=== PATIENT | male | born 1960 | race Caucasian/White ===

== ENCOUNTER 2016-09-27 07:00 | Inpatient (IN) | payer OTHER ==
[~2016-09-27] VITALS: Ht 170.2 cm; Wt 83.9 kg
[2016-09-28] VITALS (8 sets, daily range): BP systolic 140–160; BP diastolic 80–100
--- NOTE | 2016-09-28 08:06 | RADIOLOGY REPORT ---
EXAMINATION: XR CHEST CLINICAL INFORMATION: Preop TLIF COMPARISON: None TECHNIQUE: 2 views of the chest were obtained. FINDINGS: No focal consolidation, pulmonary edema, or pleural effusion. Normal cardiomediastinal silhouette. IMPRESSION: No acute cardiopulmonary findings.
--- NOTE | 2016-09-28 12:05 | RADIOLOGY REPORT ---
EXAMINATION: XR LUMBAR SPINE CLINICAL INFORMATION: L4-L5 and L5-S1 transforaminal lumbar interbody fusion. COMPARISON: Lumbar spine CT scan dated 09/24/2016. TECHNIQUE: Lateral views of the lumbar spine were performed and are labeled #1 and #2. FINDINGS: Film 1: A thin metallic marker is seen projected posteriorly over the posterior spinous process of the S1 vertebral body. Film 2: Metallic instruments is seen posteriorly at the spinous process of L5 with a forceps projecting at the L5-S1 facet joint. There is moderate degenerative disc disease and facet arthropathy at L4-L5 and L5-S1. IMPRESSION: Localization films from TLIF.
--- NOTE | 2016-09-28 13:41 | Operative Report ---
Operative/Inv Procedure Report Surgery Date: 09/28/16 Name of Procedure: L4 5 bilateral laminectomies complete foraminotomies. L5-S1 bilateral laminectomies complete foraminotomies. L4 5 bilateral osteotomies. L5-S1 bilateral osteotomies. L4 5 and L5-S1 TLIF. Insertion of L4 5 9 x 28 mm trtanium cage, insertion of L5-S1 9 x 28 mm tritanium cage. L4 5 S1 posterior lateral arthrodesis utilizing autologous bone graft and iliac crest graft aspirate. L4 5 S1 posterior lateral segmental instrumentation utilizing amna titanium instrumentation stereotactically. Pre-Operative Diagnosis: L4 5 L5-S1 degenerative disc disease disc herniation facet arthropathy Post-Operative Diagnosis: Same Estimated Blood Loss: 450cc Surgeon/Journal Entry Audit Clerk: DAYANA GUDINO MD, RACHEL DUMONT,KYRIE Barragan Anesthesia: general endotracheal tube Operative/Procedure Note Note: After undergoing endotracheal intubation Campuzano catheterization Venodyne's were placed over both lower extremities. The patient was placed prone, back flat on a Stanford frame all bony prominences well-padded. The back was washed with alcohol and Betadine x-ray was used for localization. . It was reprepped again with a ChloraPrep solution draped in usual sterile fashion. An incision was made between the L4 and the S1 vertebra and developed down to the on the underlying paraspinal muscles were mobilized out laterally to the level of the transverse processes. At this point x-ray was used for confirmation. Working with a FireBlade's bone scalpel the L4-L5 and superior S1 lamina were now removed the bone was saved and morcellized and later used in the arthrodesis. Both pars were removed out laterally as were the facet joints completing bilateral osteotomies at L4 5 and L5-S1. A complete release of the nerve roots the disc space was entered with an 11 blade at L4 5 and L5-S1. Discs were now removed with a combination of straight and curved rongeurs and straight and curved curettes. The cartilaginous endplates were removed and the bony endplates were partially decorticated. The bone that was harvested morcellized and combined with iliac crest graft aspirate was obtained through a separate stab incision. At this point bone graft was placed into the disc spaces at L4 5 and L5-S1. At L4 5 Cage tRItanium by [place] was centrally filled with autologous bone graft and tapped across the midline into the interspace. Similarly at L5-S1 a similar 9 x 28 mm cage was centrally filled with autologous bone graft and tapped across the midline in the interspace. Copious amounts of bacitracin irrigation were utilized. The transverse processes of L4-L5 and the ala of S1 were decorticated and morselized bone graft was packed over the decorticated surfaces posterolaterally. After obtaining the stereotactic coordinates the pedicle screws were now placed under stereotactic guidance at L4-L5 and S1. Titanium screws 6.5 mm diameter 50mm in length at L4 45 mm in length at L5 and millimeters in length at S1. The screws were stimulated and found to stimulate above 25 mA. At this point a 2 rods were connected to the polyaxial screws and secured under compression the spinal muscles were now reapproximated utilizing interrupted 0 Vicryls a drain was placed deep into the wound and secured to the skin. Vancomycin powder was added to the wound as well. The separate teeniest tissues were then closed using inverted 2-0 Vicryl's and then subcuticular 4-0 Vicryl closure for the skin with Steri-Strips the patient was taken extubated to the recovery room having tolerated procedure well
--- NOTE | 2016-09-28 14:44 | RADIOLOGY REPORT ---
EXAMINATION: XR LUMBOSACRAL SPINE CLINICAL INFORMATION: L4-L5 and L5-S1 transforaminal lumbar interbody fusion. COMPARISON: Lumbar spine films from earlier today. TECHNIQUE: Fluoroscopic equipment was dedicated to the operating room for the performance of a lumbar spine fusion. Frontal and lateral views of the lumbosacral junction and 2 forearm specimens were performed and are archived in PACS. FINDINGS: There is placement of intervertebral disc spacers at the L4-L5 and L5-S1 levels with anatomic alignment demonstrated. Please refer to operative notes for details. IMPRESSION: L4-L5 and L5-S1 transforaminal lumbar interbody fusion.
--- NOTE | 2016-09-28 14:51 | Operative Report ---
Operative/Inv Procedure Report Surgery Date: 09/28/16 Name of Procedure: 1. Bilat L4, L5 pars osteotomies 2. L4/5, L5/S1 far lateral discectomies 3. L4/5, L5/S1 TLIF with reina tritanium cages, autograft, ICBM aspirate 4. L4-S1 segmental posterolateral arthrodesis with reina xia3 pedicle screws/ rods, autograft, ICBM aspirate 5. Right posterior iliac crest bone marrow aspirate 6. O-arm navigation Pre-Operative Diagnosis: advanced L4/5, L5/S1 degenerative disc disease, stenosis, spondylolisthesis Post-Operative Diagnosis: same Estimated Blood Loss: 200cc Surgeon/Resident Surgeon: RACHEL DUMONT,Fer Anderson MD Anesthesia: general endotracheal tube Monitors: neurophysiologic monitoring IV Fluids: 2 L crystalloid, 100cc cell saver Implants: reina Urine Output: 1L via campuzano Drains: med BEATRIZ Specimens: synovial cyst, disc material Complications: none Condition: stable Operative Indication: Pt 56 yo male s/p work injury with intractable LBP and RLE pain and parasthesias with high grade foraminal stenosis at L4/5, L5/S1 secondary to advanced DDD, facet hypertrophy and uncovertebral spondylosis. In light of failure to respond to nonoperative treatment, he now presents for operative intervention. Operative/Procedure Note Note: Patient was taken to the operating room. After appropriate patient identification, neurophysiologic monitoring leads were placed and baseline recordings obtained. Patient underwent the smooth induction of general endotracheal anesthesia without incident. With tube secured, Campuzano catheter was sterilely inserted. DVT prophylaxis utilized throughout the case. Patient given 2 g IV Preoperative Prophylaxis. Patient then carefully turned to the prone position on the Stanford table taking care to ensure all pressure points well-padded. Lumbar region low back was widely prepped and draped usual sterile fashion using povidone solution. A vertical midline skin incision was marked and infiltrated with local anesthetic. Localizing x-ray was obtained officially in place and confirmed the level of S1. Skin incision made with a 10 blade knife. Dissection carried down with the Bovie to the lumbodorsal fascia. Fascia incised in the midline and a subperiosteal dissection lumbar paraspinal muscles performed bilaterally exposing spinous processes lamina and facet joints from L4 to the sacrum. Domingo placed on the presumed L5 lamina and intraoperative lateral x-ray obtained and confirmed this to be at the level. With correct levels verified, we then proceeded to expose the transverse processes of L4, L5, sacral alar bilaterally which were decorticated with a high-speed drill. Care was taken to maintain the facet capsule of L3 4. First, through a small stab incision over the right posterior iliac crest, 15 mL of iliac crest bone marrow aspirate was obtained through a Jamshidi needle and to add to the decompression autograft. Bilateral pars osteotomies of L4 and L5 were performed with the bone scalpel. Complete facetectomies were completed using the bone scalpel and Kerrison rongeurs skeletonizing the pedicles of L4, L5, and S1 bilaterally. Marked hypertrophy of the facet joints was noted to particularly on the patient's more symptomatically right side and especially at L5-S1. The exiting and traversing roots of L4-L5 and S1 were widely decompressed and complete foraminotomies were performed bilaterally with particular attention to the patient's most symptomatically right side. All bone was saved, morcellated, and passed off to the back table and added to the iliac crest bone marrow aspirate. With the decompression completed, we then focused our attention to the interbody arthrodesis. Working at L4 5 from the patient's right side, the dural sac was gently mobilized to the midline. A cuff of venous epidural tissue was coagulated and divided. An annulotomy was performed with an 11 blade knife. Discectomy was completed with small straight and angled curettes and pituitary rongeurs, disc space nicole and rasps until all the cartilaginous endplate was removed. After appropriate trials, a 9 by 28 x 6 lordotic tritanium cage was selected. Morcellated autograft was packed into the anterior disc space. The cage was filled with autograft and gently impacted into the L4 5 disc space under direct observation and countersunk. With the L4 5 cage in position, we then focused our attention to L5-S1. In an analogous fashion and working from the right, the dura was protected and discectomy was performed at L5-S1 with the disc space nicole and rasps until all the cartilaginous endplate was removed. After appropriate trials, a second 9 x 28 x 60 lordotic Reina tritanium cage was selected, filled with morcellated autograft. Autograft was also packed into the anterior disc space. The cage was then impacted into L5-S1 and countersunk by approximately 2 mm and its position confirmed visually noted to be excellent. With the cages in position, we then proceeded with a posterior lateral arthrodesis and placement of the pedicle screw and rods. The morcellated autograft from the decompression was packed over the transverse processes from L4 to the sacral alar bilaterally. The O arm reference arc was placed in the right post iliac cresat and the o-arm was brought into play. Reference AP and lateral x-rays were obtained followed by a spin. Reformats were completed and confirmed. Using the O arm guidance, the entry points for pedicle screws at L4, L5, and S1 were selected at the junction of the pars transverse process and facet. Greenhouse Assistant holes were drilled. The pedicles were traversed with a gearshift. The holes were sounded with a ball-tipped probe, tapped, resounded and screws placed. At L4, 6.5 x 50 mm screws were placed bilaterally, at L5, 6.5 x 40 mm screws bilaterally and at S1, 6.5 x 35 mm screws placed bilaterally. once all screws were in position, they were stimulated with thresholds greater than 30 mA at all 6 locations. The O arm was then brought back into play and a second spin obtained and confirmed excellent position of all the instrumentation with the exception of the right L4 screw which was noted to be slightly lateral. The screw was removed and redirected more medial with excellent purchase. The medial and inferior aspect of the pedicle was palpated with a elfego elevator and no cortical breakthrough was noted. 60 mm rods were top loaded into the screws and locking caps placed. The screws were finally tightened with an antitorque device. The wound was copiously irrigated with the sterile saline. 1 g of IV vancomycin powder was used to coat all of the cut issue surfaces. 10 mL of long-acting local anesthetic was infiltrated into the paraspinal muscle and wound closure was begun. Medium BEATRIZ drain placed into the wound and secured to the skin with a 2-0 nylon suture. The deep muscle was reapproximated interrupted 0 Vicryl suture. The fascia was closed with interrupted 0 Vicryl suture. Subcutaneous tissue was irrigated and closed in layers with interrupted 2-0 Vicryl suture and the skin was closed with serge. The wounds clean and dried. Bacitracin and sterile occlusive dressing was placed. A small stab incision at the right hip was closed with interrupted 2-0 Vicryl in subcutaneous tissue and serge in the skin and a clean dry dressing placed. Patient was returned to the supine position, awakened extubated and taken to PACU in stable condition. She was noted to be moving all 4 extremities at the completion of the case. All sponge, needle, and instrument counts were correct at the completion of the procedure 3. Neurophysiologic monitoring was improved at the end of the case compared to preop baseline. Discharge Disposition: PACU
--- NOTE | 2016-09-28 17:58 | Admission Core Measures ---
Admission Lab Results I reviewed the following labs: Laboratory Tests 09/28 0835 Toxicology Urine Opiates Screen (>2000 NG/ML) < 100.00 Methadone Screen (>300 NG/ML) < 40 Barbiturate Screen (>200 NG/ML) < 60 Ur Phencyclidine Scrn (>25 NG/ML) < 6.00 Amphetamines Screen (>1000 NG/ML) 148 U Benzodiazepines Scrn (>200 NG/ML) < 85 Urine Cocaine Screen (>300 NG/ML) 102 Urine Cannabis Screen (>50 NG/ML) < 5.00 Admission Meds I reviewed the following Meds: Current Medications Sig/Debra Start time Last Medication Dose Stop Time Status Admin Acetaminophen 650 MG Q4P PRN 09/28 1645 AC (Tylenol) Bisacodyl 10 MG DAILY NEEDED PRN 09/28 1700 AC (Dulcolax Supp) Cefazolin Sodium 2,000 MG ONCE 09/28 0000 NR (Kefzol-Ancef Inj) 09/28 2359 Diazepam 5 MG Q6P PRN 09/28 1700 AC (Valium) Docusate Sodium 100 MG TID 09/28 2200 AC (Colace) Heparin Sodium 5,000 UNIT Q8 09/28 2200 AC (Porcine) Hydromorphone HCl 1 MG Q4P PRN 09/28 1645 AC (Dilaudid) Hydromorphone HCl 50 MG Q24H PRN 09/28 1615 AC (Dilaudid) Sodium Chloride 45 ML (Normal Saline 50ML Bag) Ketorolac 15 MG Q6P PRN 09/28 1645 AC Tromethamine (Toradol) Ondansetron HCl 4 MG Q8P PRN 09/28 1700 AC (Zofran) Oxycodone/ 1 TAB Q4P PRN 09/28 1645 AC Acetaminophen (Percocet) Oxycodone/ 2 TAB Q4P PRN 09/28 1645 AC Acetaminophen (Percocet) Ramelteon 8 MG AT BEDTIME 09/28 2200 AC (Rozerem) Senna 374 MG AT BEDTIME NEED.. 09/28 1645 AC (Senokot) Sodium Chloride 1,000 ML .Q10H 09/28 1645 AC (Normal Saline 0.9%) 09/29 1244 Trimethobenzamide HCl 200 MG Q6P PRN 09/28 1700 AC (Tigan) Zolpidem Tartrate 2.5 MG AT BEDTIME 09/28 2200 AC (Ambien) Acute Coronary Syndrome Inclusion Criteria ACS Diagnosis No Inpatient Core Measures LDL Reminder: If No, please order W/I first 24hr of stay Congestive Heart Failure Inclusion Criteria CHF Diagnosis No Cerebrovascular accident Inclusion Criteria CVA/TIA Diagnosis No Inpatient Core Measures Bedside Swallow Eval Reminder: If BSE failed, place ST order Antithrombotic Reminder: Order Antithrombotic Medication by end of day 2 Antithrombotic Reminder: Document Reason Antithrombotic Not ordered by end of day 2 AFIB/Flutter Reminder: If Present, add to problem list AFIB/Flutter Reminder: Order Anticoag Medication for pts with AFIB/Flutter Atherosclerosis Reminder: If Present, add to problem list LDL Reminder: If No, please order W/I first 24hr of stay PT Order Reminder: If No, please order Venous thromboembolism Inpatient Core Measures VTE Risk Factors: Age > 40, Smoking, Surgery [facility] prophylaxis d/t No contraindications No VTE Pharm Prophylaxis d/t No contraindications Inclusion Criteria - Per Current guidelines, there needs to be overlap - treatment for the first 5 days of Warfarin therapy. - Parenteral Anticoagulation (IV or SC) needs to be - given along with Warfarin therapy. VTE Diagnosis No VTE Type NONE VTE Confirmed by (Test) NONE Problem List As ranked by this Provider includes Assessment & Plan 1. Hypertension HOME MEDS Home Med List Amlodipine Besylate 5 MG TABLET 5 MG PO DAILY HIGH BLOOD PRESSURE Diazepam (Valium) 10 MG TABLET 5 MG PO Q6P PRN SPASMS Docusate Sodium 100 MG CAPSULE 100 MG PO TID PRN CONSTIPATION Gabapentin 300 MG CAPSULE 300 MG PO BID NEUROPATHIC SYMPTOMS Hydromorphone HCl (Dilaudid) 2 MG TABLET 1-2 TAB PO Q4-6 PRN PRN PAIN CONTROL
--- NOTE | 2016-09-28 18:02 | PN- Neurosurgical ---
Subjective Subjective: POST-OP NOTE: Reports pain controlled. Labetolol given in pacu but blood pressure still elevated, sbp 160/96 now. He admits he use to be on 2 blood pressure medications , from the [facility], but has not taken them in several years. He is asking for a nicotine patch (admits to smoking 5 cigarettes / day). Flood catheter removed in pacu due to reported discomfort. He reports he has voided since it's removal, but pacu cannot confirm this. He denies dizziness. No shortness of breath. No chest pains. Objective Vital Signs and I&Os hypertensive in pacu up to 175/115 (given labetolol 10 mg iv x 3 doses by anesthesia), last checked on floor at 160/96 BEATRIZ drain (100 mls emptied in pacu) flood (400 mls emptied in pacu) Physical Exam: General - alert. comfortable. no acute distress. Lungs - clear bilaterally. no w/r/r. Cardiac - s1s2. reg. Abdomen - soft. nontender Lumbar dressing stained, but intact. BEATRIZ with scant serosang draingage. Extremities - warm bilaterally. no c/c/e. calves soft and nontender b/l. nvi. Assessment/Plan Assessment/Plan This 56 year old male s/p work injury with intractable LBP and RLE pain and parasthesias with high grade foraminal stenosis at L4/5, L5/S1 secondary to advanced DDD, facet hypertrophy and uncovertebral spondylosis, is now POD#0 s/p TLIF L4/5, L5/S1, and uncontrolled hypertension hospitalist and MOD called for co-management of blood pressure they asked for a set of labs, including cbc and bep plus bun/cr pain control as ordered LSO brace brought in from [facility] pipe hep sc - dvt ppx ancef q8 until BEATRIZ drain removed monitor BEATRIZ drain ?hx of cocaine abuse (utox positive) no nicotine patch per will d/w Core Measures/Miscellaneous Venous Thromboembolism VTE Risk Factors: Age > 40, Smoking, Surgery VTE Contraindications: No Contraindications VTE Diagnosis: No VTE Type: NONE VTE Confirmed by (Test): NONE Beta Marissa Is Beta Marissa a Home Med? No Antibiotics Is Patient on Antibiotics? Yes If Yes: prophylaxis
--- NOTE | 2016-09-28 18:08 | Cons- Medical ---
REEMA DUMONT,KOSTA 09/28/16 5603: General Information and HPI Consulting Request Date of Consult: 09/28/16 Requested By: RACHEL DUMONT,KYRIE Barragan History of Present Illness: Sage is 50-year-old man with a medical history significant for hypertension smoking, polysubstance use disorder including cocaine, marijuana, amphetamines. He denies any IV drug usage ever in his life. He likes to smoke is cocaine/ freebasing. He lasted a "bump" on Tuesday. He reports that he has had a long history of hypertension, previously treated at the . He was on 2 unknown antihypertensive medications but self discontinued remotely. Limited medical follow-up since. At present he denies any visual changes or headache, chest pain or discomfort at this time, dyspnea. He does have back discomfort- which is expected given his recent surgery. He feels his pain his pain is well controlled, he is having bouts of some breakthrough pain. Allergies/Medications Allergies: Coded Allergies: No Known Allergies (09/23/16) Home Med List: Amlodipine Besylate 5 MG TABLET 5 MG PO DAILY HIGH BLOOD PRESSURE PLEASE CALL TO SCHEDULE APPOINTMENT WITH PCP FOR FOLLOW UP HIGH BLOOD PRESSURE AND DOSE ADJUSTMENT Diazepam (Valium) 10 MG TABLET 5 MG PO Q6P PRN SPASMS STAGGER WITH PAIN MEDICATION Docusate Sodium 100 MG CAPSULE 100 MG PO TID PRN CONSTIPATION STOOL SOFTENER AVAILABLE OVER THE COUNTER Gabapentin 300 MG CAPSULE 300 MG PO BID NEUROPATHIC SYMPTOMS CONTINUE DIRECTED BY Hydromorphone HCl (Dilaudid) 2 MG TABLET 1-2 TAB PO Q4-6 PRN PRN PAIN CONTROL TAKE DIRECTED FOR PAIN CONTROL. STAGGER WITH VALIUM. Current Medications: Current Medications Sig/Debra Start time Last Medication Dose Route Stop Time Status Admin Acetaminophen 650 MG Q4P PRN 09/28 1645 AC PO Acetaminophen 1,000 MG .STK-MED ONE 09/28 0746 DC IV 09/28 0747 Bisacodyl 10 MG DAILY NEEDED PRN 09/28 1700 AC DE Cefazolin Sodium 2,000 MG IQ8 09/28 2200 AC Sodium Chloride 100 ML IV 09/29 2159 Cefazolin Sodium 2,000 MG ONCE 09/28 0000 NR IV 09/28 2359 Dexamethasone 8 MG .STK-MED ONE 09/28 0747 DC IM 09/28 0748 Diazepam 5 MG Q6P PRN 09/28 1700 AC PO Docusate Sodium 100 MG TID 09/28 2200 AC PO Fentanyl Citrate 200 MCG .STK-MED ONE 09/28 0746 DC IM 09/28 0747 Heparin Sodium 5,000 UNIT Q8 09/28 2200 AC (Porcine) SC Hydromorphone HCl 1 MG Q4P PRN 09/28 1645 AC IV Hydromorphone HCl 50 MG Q24H PRN 09/28 1615 AC Sodium Chloride 45 ML IV Hydromorphone HCl 2 MG .STK-MED ONE 09/28 0745 DC IM 09/28 0746 Ketorolac 15 MG Q6P PRN 09/28 1645 AC Tromethamine IV Midazolam HCl 2 MG .STK-MED ONE 09/28 0746 DC IM 09/28 0747 Ondansetron HCl 4 MG Q8P PRN 09/28 1700 AC IV Ondansetron HCl 8 MG .STK-MED ONE 09/28 0746 DC IM 09/28 0747 Oxycodone/ 1 TAB Q4P PRN 09/28 1645 AC Acetaminophen PO Oxycodone/ 2 TAB Q4P PRN 09/28 1645 AC Acetaminophen PO Ramelteon 8 MG AT BEDTIME 09/28 2200 AC PO Remifentanil 5 MG .STK-MED ONE 09/28 0747 DC IV 09/28 0748 Senna 374 MG AT BEDTIME NEED.. 09/28 1645 AC PO Sodium Chloride 1,000 ML .Q10H 09/28 1645 AC 09/28 IV 09/29 1244 1805 Trimethobenzamide HCl 200 MG Q6P PRN 09/28 1700 AC IM Zolpidem Tartrate 2.5 MG AT BEDTIME 09/28 2200 AC PO Review of Systems Review of Systems All Other Systems: Reviewed and Negative Past History Travel History Traveled to [place] past 21 day No Surgical History Surgical History: none Psychosocial History Smoking Status: Current Everyday Smoker Exam & Diagnostic Data Last 24 Hrs of Vital Signs/I&O Vital Signs Date Time Temp Pulse Resp B/P Pulse O2 O2 Flow FiO2 Ox Delivery Rate 09/28 1721 98.1 78 20 160/96 95 Room Air Room Air Physical Exam General Appearance: well developed/nourished, no apparent distress, alert, awake , comfortable Head: atraumatic, normal appearance Eyes: Bilateral: PERRL, EOMI. Neck: normal inspection Respiratory: normal breath sounds Cardiovascular: regular rate/rhythm Peripheral Pulses: 2+ radial (R), 2+ radial (L) Gastrointestinal: normal bowel sounds, soft, non-tender Extremities: no edema Neurologic/Psych: no motor/sensory deficits, awake, alert, oriented x 3 Cranial Nerves: normal speech Skin: intact, normal color, warm/dry Last 24 Hrs of Labs/Prudencio: Laboratory Tests 09/28/16 0835: Urine Opiates Screen < 100.00, Methadone Screen < 40, Barbiturate Screen < 60, Ur Phencyclidine Scrn < 6.00, Amphetamines Screen 148, U Benzodiazepines Scrn < 85, Urine Cocaine Screen 102, Urine Cannabis Screen < 5.00 Assessment/Plan Assessment/Plan 50-year-old man with a medical history significant for hypertension smoking, polysubstance use disorder including cocaine, marijuana, amphetamines. His blood pressure at this time is 160 systolic over 90 diastolic. POD#0 s/p discectomy. Given he is postop, and in some discomfort this is not unusual. He has no symptoms suggestive of hypertensive emergency. Upon review of the medical record, he does not seem to have any recent labs done today. Suspect untreated benign essential hypertension as a cause of this patient's elevated blood pressure. He did receive 2 doses of 10 mg of labetalol intravenously. Recommendations: Please obtain baseline blood work-CBC BMP today Please recheck blood pressure in 2 hours Consider starting PAMELA inhibitor if his creatinine is okay, or a calcium channel bret such as amlodipine. Incentive spirometry DVT prophylaxis at all times-defer to surgery PT evaluation as required and when able to participate Consult Acknowledgment - Thank you for your consult request. FREEDOM FRIED 09/28/16 2100: Assessment/Plan Consult Acknowledgment - Thank you for your consult request. Attending MD Review Statement Attending Statement Attending MD Statement: examined this patient, discuss w/resident/PA/ORTHOTIST OR PROSTHETIST, agreed w/resident/PA/ORTHOTIST OR PROSTHETIST, reviewed EMR data (avail), reviewed images, amended to note Attending Assessment/Plan: CC: High BP PMH: ?HTN, smoker, Polysubstance abuse, non- compliance Patient s/p TLIF L4/5, L5/S1, was persistently hypertensive. Patient states that he was on 2 different medications one for cholesterol 1 for hypertension, stopped taking medications approximately one to one and half years back, has not been following up with PCP. He also admits polysubstance abuse with cocaine, marijuana and amphetamines, never IV use. had a states that he had been in rehabilitation program and was following get with group meetings, but then somewhat in 1 years lost track and started using substances again, he gets dyspnea on exertion after 6 flights of stairs. Denies any chest pain or even on exertion. Currently he denies any chest pain, dizziness, presyncope, palpitations, diaphoresis or vision changes. Patient underwent surgery today and received 3 doses of IV labetalol during the procedure, currently pain is controlled with narcotics. Vitals: Tmax 98.2, HR, RR, oxygen saturation acceptable range. Blood pressure 160/96. On examination: A O 3, cooperative, no acute distress, neck supple, no JVD, no lymphadenopathy, mucosa moist, no focal neurological deficit, pupils equal round reactive bilaterally, peripheral pulses perfusion normal, no dependent edema, no obvious skin rashes or inflammation, BEATRIZ drain drain CVS: S1-S2. RS: Clear to auscultate bilaterally. Abdomen: Soft, NT, ND, bowel sounds present. BMP reviewed, creatinine normal, U tox is positive for amphetamine and cocaine. A and P Patient's blood pressure is significantly elevated, asymptomatic, noncompliant. According to him patient's blood pressure was high even before getting admitted, had some "EKG changes" in cardiology office for hypertension. Patient may be experiencing some pain and stress postop along with polysubstance abuse especially with cocaine maybe adding up to blood pressure. Patient received 3 doses of labetalol today. - Avoid beta bret (history of cocaine use, U tox positive) - Check EKG (for LVH and ST changes wih high BP and recent cocaine use) - Consider discontinuing IV fluids, or changing rate from 100 mLNS per hour to KVO - If blood pressure is still elevated after decreasing IV fluids, small dose of calcium channel bret like amlodipine 5 mg Or lisinopril 5 mg once a dose today and reevaluate in a.m. -Consult patient regarding cocaine use, side effects of hypertension, and cardiomyopathy, suggested and regular PCP follow-up. - DVT prophylaxis according to surgical team Appreciate consult, will follow along.
[2016-09-28 20:19] LABS: ABSOLUTE BASOPHIL COUNT 0 /CUMM (0.0-0.2); ABSOLUTE EOSINOPHIL COUNT 0 /CUMM (0.0-0.7); ABSOLUTE GRANULOCYTE CT 21.3 /CUMM (1.4-6.5); ABSOLUTE LYMPH COUNT 0.7 /CUMM (1.2-3.4); ABSOLUTE MONOCYTE COUNT 0.7 /CUMM (0.10-0.60); BASOPHIL % 0 % (0.0-2.0); EOSINOPHIL % 0 % (0-5); MEAN CORPUSCULAR HGB CONC 32.6 G/DL (33.0-37.0); MEAN CORPUSCULAR VOLUME 88.9 FL (80.0-94.0); MEAN PLATELET VOLUME 9.7 FL (7.4-10.4); PLATELET COUNT 226 /CUMM (130-400); RBC DISTRIBUTION WIDTH 14.6 % (11.5-14.5); RED BLOOD CELL CT 4.72 /CUMM (4.70-6.10); WHITE BLOOD CELL COUNT 22.7 /CUMM (4.8-10.8)
[2016-09-28 20:36] LABS: GRANULOCYTE % 93.9 % (42.2-75.2)
[2016-09-29] VITALS (10 sets, daily range): BP systolic 124–154; BP diastolic 70–94
--- NOTE | 2016-09-29 08:14 | PN- Neurosurgical ---
Subjective Subjective: Patient reporting occasional back spasms overnight, points to incision as primary source of discomfort and location of spasm. Denies radicular symptoms to bilateral lower extremities. Denies chest pain, shortness of breath and difficulty breathing. Denies nausea and vomitting. Has been voiding without difficulty. Objective Vital Signs and I&Os Vital Signs Date Time Temp Pulse Resp B/P B/P Pulse O2 O2 Flow FiO2 Mean Ox Delivery Rate 09/29 0725 98.3 81 20 140/94 94 Room Air 09/29 0530 98.0 88 20 124/80 94 Room Air 09/29 0330 98.0 90 20 144/90 09/29 0329 97.9 84 20 144/90 94 Room Air 09/29 0130 98.2 90 20 154/90 09/29 0130 98.0 90 20 154/90 93 Room Air 09/28 2341 98.4 89 20 160/100 94 Room Air 09/28 2330 98.4 98 20 160/100 09/28 2200 98.1 86 20 140/82 96 09/28 2130 98.0 90 20 140/80 09/28 2024 Room Air Room Air 09/28 1952 98.2 72 20 160/90 94 09/28 1930 98.2 72 20 160/90 09/28 1730 98.1 78 20 160/96 09/28 1721 98.1 78 20 160/96 95 Room Air Room Air Intake & Output 09/29 1600 09/29 0800 09/29 0000 09/28 1600 09/28 0800 09/28 0000 Intake Total 1000 300 Output Total 2020 200 Balance -1020 100 Intake, IV 700 100 Intake, Oral 300 200 Output, 120 200 Drainage Output, Urine 1900 Patient 185 lb Weight Physical Exam: General: Alert and oriented x3, no acute distress Caridac: S1S2 Pulm: CTA Bilaterally, using incentive spirometry Abdomen: Non-distended, non-tender Extremities: Moves all extremities, distal sensations grossly intact. Motor 5/ 5 in plantar and dorsi flexion bilaterally as well as in bilateral straight leg raises. Skin warm and well perfused. DP pulses palpable bilaterally. Bilateral calves soft and non-tender. Surgical site: Lumbar spine. Dressing intact, some spotting. BEATRIZ holding suction, 120 cc of sanguinous drainage reported overnight and 120 cc of sanguinous drainage reported on evening shift as well. Assessment/Plan Assessment/Plan This is a 56 year old male, POD 1, s/p TLIF with PMH significant for htn as well as polysubstance abuse. 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 Will continue to assess bp. -Continue heart healthy diet, advance as tolerated -OOB with lumbar support -DVT ppx: Sub q heparin -ABX ppx: Continue abx while drain in place Will d/w Dr. Barajas Core Measures/Miscellaneous Venous Thromboembolism VTE Risk Factors: Age > 40, Smoking, Surgery VTE Contraindications: No Contraindications VTE Diagnosis: No VTE Type: NONE VTE Confirmed by (Test): NONE Beta Marissa Is Beta Marissa a Home Med? No Antibiotics Is Patient on Antibiotics? Yes If Yes: prophylaxis
--- NOTE | 2016-09-29 08:53 | PN- Neurosurgical ---
Subjective Subjective: complains of incisionsl LBP with spasm Objective Vital Signs and I&Os Vital Signs Date Time Temp Pulse Resp B/P B/P Pulse O2 O2 Flow FiO2 Mean Ox Delivery Rate 09/29 0725 98.3 81 20 140/94 94 Room Air 09/29 0530 98.0 88 20 124/80 94 Room Air 09/29 0330 98.0 90 20 144/90 09/29 0329 97.9 84 20 144/90 94 Room Air 09/29 0130 98.2 90 20 154/90 09/29 0130 98.0 90 20 154/90 93 Room Air 09/28 2341 98.4 89 20 160/100 94 Room Air 09/28 2330 98.4 98 20 160/100 09/28 2200 98.1 86 20 140/82 96 09/28 2130 98.0 90 20 140/80 09/28 2024 Room Air Room Air 09/28 1952 98.2 72 20 160/90 94 09/28 1930 98.2 72 20 160/90 09/28 1730 98.1 78 20 160/96 09/28 1721 98.1 78 20 160/96 95 Room Air Room Air Intake & Output 09/29 1600 09/29 0800 09/29 0000 09/28 1600 09/28 0800 09/28 0000 Intake Total 1000 300 Output Total 2019 200 Balance -1020 100 Intake, IV 700 100 Intake, Oral 300 200 Output, 120 200 Drainage Output, Urine 1900 Patient 83.915 kg Weight Physical Exam: Pt awake and alert conversive and appropriate incision is c,d,i BEATRIZ with serosanguinous dc 120cc last shift neuro exam is normal ambulating with brace, using IS tyler some po this am voiding on own Current Medications: Current Medications Sig/Debra Start time Last Medication Dose Route Stop Time Status Admin Acetaminophen 650 MG Q4P PRN 09/28 1645 AC PO Bisacodyl 10 MG DAILY NEEDED PRN 09/28 1700 AC DC Cefazolin Sodium 2,000 MG IQ8 09/28 2200 AC 09/29 Sodium Chloride 100 ML IV 09/30 2157 0836 Cefazolin Sodium 2,000 MG ONCE 09/28 0000 DC IV 09/28 2359 Diazepam 5 MG Q6P PRN 09/28 1700 AC PO Docusate Sodium 100 MG TID 09/28 2200 AC 09/29 PO 0836 Fentanyl Citrate 100 MCG .STK-MED ONE 09/28 1319 DC IM 09/28 1320 Heparin Sodium 5,000 UNIT Q8 09/28 2200 AC (Porcine) SC Hydromorphone HCl 1 MG Q4P PRN 09/28 1645 AC 09/28 IV 2208 Hydromorphone HCl 50 MG Q24H PRN 09/28 1615 AC Sodium Chloride 45 ML IV Ketorolac 15 MG Q6P PRN 09/28 1645 AC Tromethamine IV Labetalol HCl 100 MG .STK-MED ONE 09/28 1449 DC IV 09/28 1450 Ondansetron HCl 4 MG Q8P PRN 09/28 1700 AC IV Oxycodone/ 1 TAB Q4P PRN 09/28 164 AC Acetaminophen PO Oxycodone/ 2 TAB Q4P PRN 09/28 1645 AC Acetaminophen PO Ramelteon 8 MG AT BEDTIME 09/28 2200 AC PO Senna 374 MG AT BEDTIME NEED.. 09/28 1645 AC PO Sodium Chloride 1,000 ML .Q20H 09/28 1645 AC 09/29 IV 09/29 1726 0233 Trimethobenzamide HCl 200 MG Q6P PRN 09/28 1700 AC IM Zolpidem Tartrate 2.5 MG AT BEDTIME 09/28 2200 AC PO Results Last 48 Hours of Labs: Laboratory Tests 09/28 09/28 1900 0835 Chemistry Sodium (137 - 145 mmol/L) 140 Potassium (3.5 - 5.1 mmol/L) 4.1 Chloride (98 - 107 mmol/L) 103 Carbon Dioxide (22 - 30 mmol/L) 22 Anion Gap (5 - 16) 14 BUN (9 - 20 mg/dL) 11 Creatinine (0.7 - 1.2 mg/dL) 0.8 Estimated GFR (>60 ml/min) > 60 BUN/Creatinine Ratio (7 - 25 %) 13.8 Hematology CBC w Diff NO MAN DIFF REQ WBC (4.8 - 10.8 /CUMM) 22.7 H RBC (4.70 - 6.10 /CUMM) 4.72 Hgb (14.0 - 18.0 G/DL) 13.7 L Hct (42 - 52 %) 42.0 MCV (80.0 - 94.0 FL) 88.9 MCH (27.0 - 31.0 PG) 29.0 RDW (11.5 - 14.5 %) 14.6 H Plt Count (130 - 400 /CUMM) 226 MPV (7.4 - 10.4 FL) 9.7 Gran % (42.2 - 75.2 %) 93.9 H Lymphocytes % (20.5 - 51.1 %) 3.2 L Monocytes % (1.7 - 9.3 %) 2.9 Eosinophils % (0 - 5 %) 0 Basophils % (0.0 - 2.0 %) 0 L Absolute Granulocytes (1.4 - 6.5 /CUMM) 21.3 H Absolute Lymphocytes (1.2 - 3.4 /CUMM) 0.7 L Absolute Monocytes (0.10 - 0.60 /CUMM) 0.7 H Absolute Eosinophils (0.0 - 0.7 /CUMM) 0 Absolute Basophils (0.0 - 0.2 /CUMM) 0 PUBS MCHC (33.0 - 37.0 G/DL) 32.6 L Toxicology Urine Opiates Screen (>2000 NG/ML) < 100.00 Methadone Screen (>300 NG/ML) < 40 Barbiturate Screen (>200 NG/ML) < 60 Ur Phencyclidine Scrn (>25 NG/ML) < 6.00 Amphetamines Screen (>1000 NG/ML) 148 U Benzodiazepines Scrn (>200 NG/ML) < 85 Urine Cocaine Screen (>300 NG/ML) 102 Urine Cannabis Screen (>50 NG/ML) < 5.00 Assessment/Plan Assessment/Plan Pt POD 1 s/p L4/5, L5/S1 TLIF and stable. BP better this am. Appreciate medical input - BP elevation early postop most likely related to postop pain. Plan: -cont BEATRIZ, abx until less than 50cc/shift -OOB with brace -reg diet -HLIV -dc MECHANIC INSULATOR -DVT prophylaxis -IS use Core Measures/Miscellaneous Venous Thromboembolism VTE Risk Factors: Age > 40, Smoking, Surgery VTE Contraindications: No Contraindications VTE Diagnosis: No VTE Type: NONE VTE Confirmed by (Test): NONE Beta Marissa Is Beta Marissa a Home Med? No Antibiotics Is Patient on Antibiotics? Yes If Yes: prophylaxis Attending MD Review Statement Attending Statement Attending MD Statement: examined this patient, discuss w/resident/PA/GROUP DIRECTOR EXPERIENCE, discussed w/nursing
--- NOTE | 2016-09-29 10:36 | PN- Medicine Consult ---
ANJEL DUMONT,SHARYN 09/29/16 1021: Assessment/Plan Assessment/Plan Assessment: 50 YO male with pmh of htn, polysubstance use (cocaine, marijuana, amphetamines, ETOH) with advanced L4/L5 degenerative disc disease, stenosis, spondylolisthesis and had surgery for the same. Post operatively he was found to be hypertensive and medicine was consutled for BP management. He tested positive for cocaine use , and stopped his BP medications a year ago because he started using cocaine again. HTN postoperative HTN could have been pain induced. Recieved labetalol. His BP responded. At this time his BP seems to be elevated. Recommend starting low dose , 5mg amlodipine and monitoring BP. Would avoid B-Blockers at this time due to his cocaine use. ETOH use Reports history of heavy drinking. Has not had ETOH withdrawl in the past. States last drink was 09/26/16. There is a possiblity of withdrawl 5-7 days after cessation of ETOH. Would monitor closely. Recommend ativan PRN and may consider CIWA scoring, would also start multivitamin and folate. Plan: see above Problem List: 1. Hypertension 2. H/O ETOH abuse Subjective Subjective: Reports some stiffness this morning. Otherwise feels well. Review of Systems Constitutional: Reports: see HPI. Objective Last 24 Hrs of Vital Signs/I&O Vital Signs Date Time Temp Pulse Resp B/P B/P Pulse O2 O2 Flow FiO2 Mean Ox Delivery Rate 09/29 0936 98.4 70 18 150/70 96 Room Air 09/29 0725 98.3 81 20 140/94 94 Room Air 09/29 0530 98.0 88 20 124/80 94 Room Air 09/29 0330 98.0 90 20 144/90 09/29 0329 97.9 84 20 144/90 94 Room Air 09/29 0130 98.2 90 20 154/90 09/29 0130 98.0 90 20 154/90 93 Room Air 09/28 2341 98.4 89 20 160/100 94 Room Air 09/28 2330 98.4 98 20 160/100 09/28 2200 98.1 86 20 140/82 96 09/28 2130 98.0 90 20 140/80 09/28 2024 Room Air Room Air 09/28 1952 98.2 72 20 160/90 94 09/28 1930 98.2 72 20 160/90 09/28 1730 98.1 78 20 160/96 09/28 1721 98.1 78 20 160/96 95 Room Air Room Air Intake & Output 09/29 1600 09/29 0800 09/29 0000 Intake Total 1000 300 Output Total 200 2020 200 Balance -200 -1020 100 Intake, IV 700 100 Intake, Oral 300 200 Output, 120 200 Drainage Output, Urine 200 1900 Patient 185 lb Weight Physical Exam General Appearance: well developed/nourished, no apparent distress, alert, awake , comfortable Head: atraumatic, normal appearance Neck: normal inspection, supple Cardiovascular: regular rate/rhythm Respiratory: normal breath sounds, quiet respiration, lungs clear Peripheral Pulses: 2+ radial (R) Abdomen: normal bowel sounds, soft, non-tender Back: Dressing intact, BEATRIZ suction Extremities: no edema Neurologic/Psychiatric: alert, oriented x 3 Current Medications: Current Medications Sig/Debra Start time Last Medication Dose Route Stop Time Status Admin Acetaminophen 650 MG Q4P PRN 09/28 1645 AC PO Bisacodyl 10 MG DAILY NEEDED PRN 09/28 1700 AC NH Cefazolin Sodium 2,000 MG IQ8 09/28 2200 AC 09/29 Sodium Chloride 100 ML IV 09/30 2158 0836 Cefazolin Sodium 2,000 MG ONCE 09/28 0000 DC IV 09/28 2359 Diazepam 5 MG Q6P PRN 09/28 1700 AC PO Docusate Sodium 100 MG TID 09/28 2200 AC 09/29 PO 0836 Fentanyl Citrate 100 MCG .STK-MED ONE 09/28 1319 DC IM 09/28 1320 Heparin Sodium 5,000 UNIT Q8 09/28 2200 AC (Porcine) SC Hydromorphone HCl 2 MG Q4P PRN 09/29 1015 AC PO Hydromorphone HCl 1 MG Q4P PRN 09/28 1645 AC 09/28 IV 2208 Hydromorphone HCl 50 MG Q24H PRN 09/28 1615 DC Sodium Chloride 45 ML IV 09/29 1100 Ketorolac 15 MG Q8 09/29 1400 AC Tromethamine IV Ketorolac 15 MG Q6P PRN 09/28 1645 AC Tromethamine IV Labetalol HCl 100 MG .STK-MED ONE 09/28 1449 DC IV 09/28 1450 Ondansetron HCl 4 MG Q8P PRN 09/28 1700 AC IV Oxycodone/ 1 TAB Q4P PRN 09/28 164 AC Acetaminophen PO Oxycodone/ 2 TAB Q4P PRN 09/28 164 AC Acetaminophen PO Ramelteon 8 MG AT BEDTIME 09/28 2200 AC PO Senna 374 MG AT BEDTIME NEED.. 09/28 1645 AC PO Sodium Chloride 1,000 ML .Q20H 09/28 1645 DC 09/29 IV 09/29 1726 0233 Trimethobenzamide HCl 200 MG Q6P PRN 09/28 1700 AC IM Zolpidem Tartrate 2.5 MG AT BEDTIME 09/28 2200 AC PO Results Last 24 Hrs Lab/Prudencio Results: Laboratory Tests 09/28/16 1900: Anion Gap 14, Estimated GFR > 60, BUN/Creatinine Ratio 13.8, CBC w Diff NO MAN DIFF REQ, RBC 4.72, MCV 88.9, MCH 29.0, RDW 14.6 H, MPV 9.7, Gran % 93.9 H, Lymphocytes % 3.2 L, Monocytes % 2.9, Eosinophils % 0, Basophils % 0 L, Absolute Granulocytes 21.3 H, Absolute Lymphocytes 0.7 L, Absolute Monocytes 0.7 H, Absolute Eosinophils 0, Absolute Basophils 0, PUBS MCHC 32.6 L Recent Imaging Studies: Film 1: A thin metallic marker is seen projected posteriorly over the posterior spinous process of the S1 vertebral body. Film 2: Metallic instruments is seen posteriorly at the spinous process of L5 with a forceps projecting at the L5-S1 facet joint. There is moderate degenerative disc disease and facet arthropathy at L4-L5 and L5-S1. IMPRESSION: Localization films from TLIF. HARMAN DUMONT,TRAVIS 09/29/16 1119: Attending MD Review Statement Attending Sign Off Attending Cosign Statement: I have: examined this patient, reviewed [facility] EMR data, personally reviewd images, discussd w/resident/PA/MOTOR SETTER, discussed mgmt plan w/pt, agreed w/resident/ PA/MOTOR SETTER, amended to note. Other Findings: Patient seen and examined, he did complain of some pain in his back. Patient is status post L4, L5, S1 laminectomies, osteotomies and dissectomy TLIF postop day #1 today. Medicine consult was obtained for hypertension. Vital Signs Date Time Temp Pulse Resp B/P B/P Pulse O2 O2 Flow FiO2 Mean Ox Delivery Rate 09/29 0936 98.4 70 18 150/70 96 Room Air 09/29 0725 98.3 81 20 140/94 94 Room Air 09/29 0530 98.0 88 20 124/80 94 Room Air 09/29 0330 98.0 90 20 144/90 09/29 0329 97.9 84 20 144/90 94 Room Air 09/29 0130 98.2 90 20 154/90 09/29 0130 98.0 90 20 154/90 93 Room Air 09/28 2341 98.4 89 20 160/100 94 Room Air 09/28 2330 98.4 98 20 160/100 09/28 2200 98.1 86 20 140/82 96 09/28 2130 98.0 90 20 140/80 09/28 2024 Room Air Room Air 09/28 1952 98.2 72 20 160/90 94 09/28 1930 98.2 72 20 160/90 09/28 1730 98.1 78 20 160/96 09/28 1721 98.1 78 20 160/96 95 Room Air Room Air on exam; aox3, nad. cv; s1,s2, rrr resp; clear abd; soft, nt, bs+ ext; no edema back: + dressing on the back. Laboratory Tests 09/28 1900 Chemistry Sodium (137 - 145 mmol/L) 140 Potassium (3.5 - 5.1 mmol/L) 4.1 Chloride (98 - 107 mmol/L) 103 Carbon Dioxide (22 - 30 mmol/L) 22 Anion Gap (5 - 16) 14 BUN (9 - 20 mg/dL) 11 Creatinine (0.7 - 1.2 mg/dL) 0.8 Estimated GFR (>60 ml/min) > 60 BUN/Creatinine Ratio (7 - 25 %) 13.8 Hematology CBC w Diff NO MAN DIFF REQ WBC (4.8 - 10.8 /CUMM) 22.7 H RBC (4.70 - 6.10 /CUMM) 4.72 Hgb (14.0 - 18.0 G/DL) 13.7 L Hct (42 - 52 %) 42.0 MCV (80.0 - 94.0 FL) 88.9 MCH (27.0 - 31.0 PG) 29.0 RDW (11.5 - 14.5 %) 14.6 H Plt Count (130 - 400 /CUMM) 226 MPV (7.4 - 10.4 FL) 9.7 Gran % (42.2 - 75.2 %) 93.9 H Lymphocytes % (20.5 - 51.1 %) 3.2 L Monocytes % (1.7 - 9.3 %) 2.9 Eosinophils % (0 - 5 %) 0 Basophils % (0.0 - 2.0 %) 0 L Absolute Granulocytes (1.4 - 6.5 /CUMM) 21.3 H Absolute Lymphocytes (1.2 - 3.4 /CUMM) 0.7 L Absolute Monocytes (0.10 - 0.60 /CUMM) 0.7 H Absolute Eosinophils (0.0 - 0.7 /CUMM) 0 Absolute Basophils (0.0 - 0.2 /CUMM) 0 PUBS MCHC (33.0 - 37.0 G/DL) 32.6 L Assessment and recommendations: 56-year-old male with past medical history significant for hypertension wall is on medications but then stopped taking them in about a year ago now status post TLIF L4, L5, S1 postop day #1 today and medicine consult was obtained secondary to hypertension. Patient was started on Norvasc. Blood pressure seems to be slightly better controlled. I would recommend continuing the Norvasc. Patient on pain regimen. His cocaine screen was positive therefore we are recommending to avoid beta blockers. He did have significant leukocytosis yesterday, recommend rechecking CBC today. DVT prophylaxis: Heparin subcutaneous per neurosurgery. Thank you, will follow
[2016-09-30] VITALS (7 sets, daily range): BP systolic 110–146; BP diastolic 70–82
--- NOTE | 2016-09-30 07:55 | PN- Neurosurgical ---
Subjective Subjective: Pt doing well. Had poor pain control over night but better now. reports low back spasms and intermittent pain in right ant thigh. Objective Vital Signs and I&Os Vital Signs Date Time Temp Pulse Resp B/P B/P Pulse O2 O2 Flow FiO2 Mean Ox Delivery Rate 09/30 0638 98.1 73 20 136/82 96 Room Air 09/30 0600 98.2 89 18 146/80 09/30 0400 98.2 89 18 146/80 09/30 0200 98.2 80 18 146/80 09/30 0000 98.2 89 18 146/80 09/29 2242 98.2 89 20 146/80 98 Room Air 09/29 2200 97.4 88 18 130/80 09/29 2000 97.4 88 18 130/80 09/29 2000 97.4 88 18 130/80 09/29 1408 97.4 88 20 130/80 95 Room Air 09/29 1300 88 142/78 09/29 0936 98.4 70 18 150/70 96 Room Air Intake & Output 09/30 0800 09/30 0000 09/29 1600 09/29 0800 09/29 0000 09/28 1600 Intake Total 573 741 8865 300 Output Total 810 377 998 9667 200 Balance -470 -265 -480 -1020 100 Intake, IV 100 700 100 Intake, Oral 240 240 300 200 Output, 110 130 80 120 200 Drainage Output, Urine 700 732 199 8914 Patient 83.915 kg Weight Physical Exam: Pt awake and alert, sitting at side of bed and eating breakfast. AF, VSS BP well controlled on norvasc Terrell with 100cc over night serosanguinous incision is c,d,i flat motor and sensory bilat LE intact, no LE tenderness, calves soft ambulatory tyler po voiding on own Current Medications: Current Medications Sig/Debra Start time Last Medication Dose Route Stop Time Status Admin Acetaminophen 650 MG Q4P PRN 09/28 1645 AC PO Amlodipine Besylate 5 MG DAILY 09/29 1040 AC 09/29 PO 1300 Bisacodyl 10 MG DAILY NEEDED PRN 09/28 170 AC NV Cefazolin Sodium 2,000 MG IQ8 09/28 2199 AC 09/29 Sodium Chloride 100 ML IV 09/30 2157 2346 Diazepam 5 MG Q6P PRN 09/28 170 AC 09/30 PO 0024 Docusate Sodium 100 MG TID 09/28 2199 AC 09/29 PO 2032 Folic Acid 1 MG DAILY 09/29 1040 AC 09/29 PO 1259 Heparin Sodium 5,000 UNIT Q8 09/28 220 AC (Porcine) SC Hydromorphone HCl 2 MG Q4P PRN 09/29 1015 AC 09/29 PO 2346 Hydromorphone HCl 1 MG Q4P PRN 09/28 1645 DC 09/30 IV 0400 Hydromorphone HCl 50 MG Q24H PRN 09/28 1615 DC Sodium Chloride 45 ML IV 09/29 1100 Ketorolac 15 MG Q8 09/29 1400 AC 09/30 Tromethamine IV 0542 Ketorolac 15 MG Q6P PRN 09/28 1645 DC Tromethamine IV Lorazepam 0 Q1P PRN 09/29 1045 AC IV Multivitamins 1 TAB DAILY 09/29 1040 AC 09/29 PO 1300 Ondansetron HCl 4 MG Q8P PRN 09/28 1700 AC IV Oxycodone/ 1 TAB Q4P PRN 09/28 1645 DC 09/29 Acetaminophen PO 1836 Oxycodone/ 2 TAB Q4P PRN 09/28 1645 DC Acetaminophen PO Patient Medication 1 ED .STK-MED ONE 09/29 1402 DC Teaching ED 09/29 1403 Ramelteon 8 MG AT BEDTIME 09/28 2199 AC PO Senna 374 MG AT BEDTIME NEED.. 09/28 1645 AC PO Sodium Chloride 1,000 ML .Q20H 09/28 1645 DC 09/29 IV 09/29 1726 0233 Trimethobenzamide HCl 200 MG Q6P PRN 09/28 1700 AC IM Zolpidem Tartrate 2.5 MG AT BEDTIME 09/28 2200 AC 09/29 PO 2030 Results Last 48 Hours of Labs: Laboratory Tests 09/28 09/28 1900 0835 Chemistry Sodium (137 - 145 mmol/L) 140 Potassium (3.5 - 5.1 mmol/L) 4.1 Chloride (98 - 107 mmol/L) 103 Carbon Dioxide (22 - 30 mmol/L) 22 Anion Gap (5 - 16) 14 BUN (9 - 20 mg/dL) 11 Creatinine (0.7 - 1.2 mg/dL) 0.8 Estimated GFR (>60 ml/min) > 60 BUN/Creatinine Ratio (7 - 25 %) 13.8 Hematology CBC w Diff NO MAN DIFF REQ WBC (4.8 - 10.8 /CUMM) 22.7 H RBC (4.70 - 6.10 /CUMM) 4.72 Hgb (14.0 - 18.0 G/DL) 13.7 L Hct (42 - 52 %) 42.0 MCV (80.0 - 94.0 FL) 88.9 MCH (27.0 - 31.0 PG) 29.0 RDW (11.5 - 14.5 %) 14.6 H Plt Count (130 - 400 /CUMM) 226 MPV (7.4 - 10.4 FL) 9.7 Gran % (42.2 - 75.2 %) 93.9 H Lymphocytes % (20.5 - 51.1 %) 3.2 L Monocytes % (1.7 - 9.3 %) 2.9 Eosinophils % (0 - 5 %) 0 Basophils % (0.0 - 2.0 %) 0 L Absolute Granulocytes (1.4 - 6.5 /CUMM) 21.3 H Absolute Lymphocytes (1.2 - 3.4 /CUMM) 0.7 L Absolute Monocytes (0.10 - 0.60 /CUMM) 0.7 H Absolute Eosinophils (0.0 - 0.7 /CUMM) 0 Absolute Basophils (0.0 - 0.2 /CUMM) 0 PUBS MCHC (33.0 - 37.0 G/DL) 32.6 L Toxicology Urine Opiates Screen (>2000 NG/ML) < 100.00 Methadone Screen (>300 NG/ML) < 40 Barbiturate Screen (>200 NG/ML) < 60 Ur Phencyclidine Scrn (>25 NG/ML) < 6.00 Amphetamines Screen (>1000 NG/ML) 148 U Benzodiazepines Scrn (>200 NG/ML) < 85 Urine Cocaine Screen (>300 NG/ML) 102 Urine Cannabis Screen (>50 NG/ML) < 5.00 Assessment/Plan Assessment/Plan Pt POD2 s/p L4/5, L5/S1 TLIF and doing well. Plan: -OOB with brace -dc TERRELL when 50cc or less, cont abx until drain out -cont po dilaudid, valium prn -toradol for another 24 hours then dc -anticipate home tomorrow Core Measures/Miscellaneous Venous Thromboembolism VTE Risk Factors: Age > 40, Smoking, Surgery VTE Contraindications: No Contraindications VTE Diagnosis: No VTE Type: NONE VTE Confirmed by (Test): NONE Beta Marissa Is Beta Marissa a Home Med? No Antibiotics Is Patient on Antibiotics? Yes If Yes: prophylaxis
--- NOTE | 2016-09-30 08:42 | PN- Medicine Consult ---
ANJEL DUMONT,SHARYN 09/30/16 0828: Assessment/Plan Assessment/Plan Assessment: 50 YO male with pmh of htn, polysubstance use (cocaine, marijuana, amphetamines, ETOH) with advanced L4/L5 degenerative disc disease, stenosis, spondylolisthesis and had surgery for the same. Post operatively he was found to be hypertensive and medicine was consutled for BP management. He tested positive for cocaine use , and stopped his BP medications a year ago because he started using cocaine again. HTN postoperative HTN could have been pain induced. Recieved labetalol. His BP responded. At this time his BP is well controlled. BP this morning 136/82, continue norvasc 5mg. Would avoid B-Blockers at this time due to his cocaine use. Intial EKG demonstrated bigeminy which could be due to his cocaine use. Will get f/u EKG this morning. ETOH use Reports history of heavy drinking. Has not had ETOH withdrawl in the past. States last drink was 09/26/16. There is a possiblity of withdrawl 5-7 days after cessation of ETOH. Would monitor closely. Recommend ativan PRN and may consider CIWA scoring, would also start multivitamin and folate. Constipation Reports constipation, started on colace. monitor for BM, if needed may try SENNA before using dulcolax suppository. Plan: see above Subjective Subjective: Reports not sleeping well last night due to pain at surgical site. Review of Systems Constitutional: Reports: see HPI. Objective Last 24 Hrs of Vital Signs/I&O Vital Signs Date Time Temp Pulse Resp B/P B/P Pulse O2 O2 Flow FiO2 Mean Ox Delivery Rate 09/30 0638 98.1 73 20 136/82 96 Room Air 09/30 0600 98.2 89 18 146/80 09/30 0400 98.2 89 18 146/80 09/30 0200 98.2 80 18 146/80 09/30 0000 98.2 89 18 146/80 09/29 2242 98.2 89 20 146/80 98 Room Air 09/29 2200 97.4 88 18 130/80 09/30 1999 97.4 88 18 130/80 09/30 1999 97.4 88 18 130/80 09/29 1408 97.4 88 20 130/80 95 Room Air 09/29 1300 88 142/78 09/29 0936 98.4 70 18 150/70 96 Room Air Intake & Output 09/30 1600 09/30 0800 09/30 0000 Intake Total 340 240 Output Total 810 505 Balance -470 -265 Intake, IV 100 Intake, Oral 240 240 Output, 110 130 Drainage Output, Urine 700 375 Physical Exam General Appearance: well developed/nourished, alert, awake, mild distress Head: atraumatic, normal appearance Neck: normal inspection, supple Cardiovascular: regular rate/rhythm Respiratory: normal breath sounds, quiet respiration, lungs clear Peripheral Pulses: 2+ radial (R) Abdomen: normal bowel sounds, soft, non-tender Extremities: no edema Neurologic/Psychiatric: awake, alert, oriented x 3 Current Medications: Current Medications Sig/Debra Start time Last Medication Dose Route Stop Time Status Admin Acetaminophen 650 MG Q4P PRN 09/28 1645 AC PO Amlodipine Besylate 5 MG DAILY 09/29 1040 AC 09/29 PO 1300 Bisacodyl 10 MG DAILY NEEDED PRN 09/28 1700 AC WA Cefazolin Sodium 2,000 MG IQ8 09/28 2200 AC 09/29 Sodium Chloride 100 ML IV 09/30 2158 2346 Diazepam 5 MG Q6P PRN 09/28 1700 AC 09/30 PO 0024 Docusate Sodium 100 MG TID 09/28 2200 AC 09/29 PO 2032 Folic Acid 1 MG DAILY 09/29 1040 AC 09/29 PO 1259 Heparin Sodium 5,000 UNIT Q8 09/28 2200 AC (Porcine) SC Hydromorphone HCl 2 MG Q4P PRN 09/29 1015 AC 09/29 PO 2346 Hydromorphone HCl 1 MG Q4P PRN 09/28 1645 DC 09/30 IV 0745 Hydromorphone HCl 50 MG Q24H PRN 09/28 1615 DC Sodium Chloride 45 ML IV 09/29 1100 Ketorolac 15 MG Q8 09/29 1400 AC 09/30 Tromethamine IV 0542 Ketorolac 15 MG Q6P PRN 09/28 1645 DC Tromethamine IV Lorazepam 0 Q1P PRN 09/29 1045 AC IV Multivitamins 1 TAB DAILY 09/29 1040 AC 09/29 PO 1300 Ondansetron HCl 4 MG Q8P PRN 09/28 1700 AC IV Oxycodone/ 1 TAB Q4P PRN 09/28 1645 DC 09/29 Acetaminophen PO 1836 Oxycodone/ 2 TAB Q4P PRN 09/28 1645 DC Acetaminophen PO Patient Medication 1 ED .STK-MED ONE 09/29 1402 DC Teaching ED 09/29 1403 Ramelteon 8 MG AT BEDTIME 09/28 2200 AC PO Senna 374 MG AT BEDTIME NEED.. 09/28 1645 AC PO Sodium Chloride 1,000 ML .Q20H 09/28 1645 DC 09/29 IV 09/29 1726 0233 Trimethobenzamide HCl 200 MG Q6P PRN 09/28 1700 AC IM Zolpidem Tartrate 2.5 MG AT BEDTIME 09/28 2200 AC 09/29 PO 2030 Results Last 24 Hrs Lab/Prudencio Results: none HARMAN DUMONT,TRAVIS 09/30/16 1101: Attending MD Review Statement Attending Sign Off Attending Cosign Statement: I have: examined this patient, reviewed avalbl EMR data, personally reviewd images, discussd w/resident/PA/TRANSMISSION SYSTEMS OPERATOR, discussed mgmt plan w/tommy, discussed mgmt plan w/pt, agreed w/resident/PA/TRANSMISSION SYSTEMS OPERATOR, amended to note. Other Findings: Patient seen and examined, overall doing better. Still complains of pain and still has drainage in the BEATRIZ drain. Blood pressure is much better on current regimen. no labs today. Assessment and recommendations: 56-year-old male with past medical history significant for hypertension was on medications but then stopped taking them in about a year ago now status post TLIF L4, L5, S1 postop day #2 today and medicine consult was obtained secondary to hypertension. Blood pressure much stable on current regimen. Recommend continuing the patient on 5 mg of amlodipine and discharging him on the same medication. He should establish his care with a primary care doctor who can follow. Noted that he had leukocytosis postop. Recommend repeating a CBC. Patient is getting Dilaudid for pain management which seems to be helping. DVT px; Hep sq. Medical issues stable. Will sign off, plesae call with questions. Thank you
[2016-10-01] VITALS: BP 110/70
[2016-10-01 02:00] VITALS: BP 110/70
[2016-10-01 04:00] VITALS: BP 110/70
[2016-10-01 06:00] VITALS: BP 140/80
[2016-10-01 06:20] VITALS: BP 108/60
--- NOTE | 2016-10-01 07:57 | PN- Neurosurgical ---
Subjective Subjective: Pt doing well. No complaints other than occasional back spasm. Right leg pain better on neurontin, started yesterday. Objective Vital Signs and I&Os Vital Signs Date Time Temp Pulse Resp B/P B/P Pulse O2 O2 Flow FiO2 Mean Ox Delivery Rate 10/01 0620 98.3 102 20 108/60 96 Room Air 10/01 0600 98.3 81 18 140/80 10/01 0400 98.3 99 18 110/70 10/01 0200 98.3 99 18 110/70 10/01 0000 98.3 99 18 110/70 09/30 2210 98.3 99 20 110/70 93 09/30 1411 97.7 98 20 130/70 98 Room Air 09/30 0939 98.4 90 16 154/78 Intake & Output 10/01 0800 10/01 0000 09/30 1600 09/30 0800 09/30 0000 09/29 1600 Intake Total 240 580 340 240 Output Total 20 40 70 810 505 480 Balance 220 -40 510 -470 -265 -480 Intake, IV 100 100 Intake, Oral 240 480 240 240 Number 0 Bowel Movements Output, 20 40 70 110 130 80 Drainage Output, Urine 700 375 400 Physical Exam: Pt AF, VSS neuro intact incision c,d,i drain dc'd ambulating independently, tyler po, voiding on own though no BM yet Current Medications: Current Medications Sig/Debra Start time Last Medication Dose Route Stop Time Status Admin Acetaminophen 650 MG Q4P PRN 09/28 1645 AC PO Amlodipine Besylate 5 MG DAILY 09/29 1040 AC 09/30 PO 0939 Bisacodyl 10 MG DAILY NEEDED PRN 09/28 170 AC NM Cefazolin Sodium 2,000 MG IQ8 09/28 2199 DC 09/30 Sodium Chloride 100 ML IV 09/30 2157 1718 Diazepam 5 MG Q6P PRN 09/28 1700 AC 10/01 PO 0438 Docusate Sodium 100 MG TID 09/28 220 AC 09/30 PO 2020 Folic Acid 1 MG DAILY 09/29 1040 AC 09/30 PO 0938 Gabapentin 300 MG BID 09/30 1529 AC 09/30 PO 2020 Heparin Sodium 5,000 UNIT Q8 09/280 AC (Porcine) SC Hydromorphone HCl 4 MG Q4P PRN 09/30 1515 AC 10/01 PO 0511 Hydromorphone HCl 2 MG Q4P PRN 09/30 1515 AC PO Hydromorphone HCl 1 MG Q4P PRN 09/30 1315 DC PO Hydromorphone HCl 2 MG .STK-MED ONE 09/30 0756 DC IM 09/30 0757 Hydromorphone HCl 2 MG Q4P PRN 09/29 1015 DC 09/30 PO 1211 Ketorolac 15 MG Q8 09/29 1400 AC 10/01 Tromethamine IV 0602 Lorazepam 0 Q1P PRN 09/29 1045 AC IV Multivitamins 1 TAB DAILY 09/29 1040 AC 09/30 PO 0940 Ondansetron HCl 4 MG Q8P PRN 09/28 1700 AC IV Patient Medication 1 ED .STK-MED ONE 09/30 1334 DC Teaching ED 09/30 1335 Ramelteon 8 MG AT BEDTIME 09/28 2200 AC 09/30 PO 2020 Senna 374 MG AT BEDTIME NEED.. 09/28 1645 AC 09/30 PO 1841 Trimethobenzamide HCl 200 MG Q6P PRN 09/28 1700 AC IM Zolpidem Tartrate 2.5 MG AT BEDTIME 09/28 2200 AC 09/30 PO 2020 Assessment/Plan Assessment/Plan Pt POD3 s/p lumbar fusion and doing well. Plan: -dc BEATRIZ -dc abx -dc home today with VNA services -fu with me 2 weeks -cont neurontin, norvasc, dilaudid and valium postop -dc instructions given - no driving, cover incision occlusively for showers, no lift more than 5lbs, nl bending, twisting, etc.. -please do not submerge incision Core Measures/Miscellaneous Venous Thromboembolism VTE Risk Factors: Age > 40, Smoking, Surgery VTE Contraindications: No Contraindications VTE Diagnosis: No VTE Type: NONE VTE Confirmed by (Test): NONE Beta Marissa Is Beta Marissa a Home Med? No Antibiotics Is Patient on Antibiotics? Yes If Yes: prophylaxis Attending MD Review Statement Attending Statement Attending MD Statement: examined this patient, discuss w/resident/PA/FLAME CUTTER, discussed w/nursing
[2016-10-01] MEDS ORDERED: GABAPENTIN300 M2 PO (08:02)
[2016-10-01] MEDS ORDERED: AMLODIPINE BESYL5 M1 PO (08:02)
[2016-10-01] MEDS ORDERED: DOCUSATE SODIU100 M3 PO (08:02)
[2016-10-01] MEDS ORDERED: DILAUDID2 M1 PO (08:02)
[2016-10-01] MEDS ORDERED: VALIUM10 M1 PO (08:02)
--- NOTE | 2016-10-01 08:08 | Patient Discharge Instructions ---
Discharge Instructions General Discharge Information You were seen/treated for: advanced L4/5, L5/S1 degenerative disc disease, stenosis, spondylolisthesis You had these procedures: Surgery Date: 09/28/16 Name of Procedure: 1. Bilat L4, L5 pars osteotomies 2. L4/5, L5/S1 far lateral discectomies 3. L4/5, L5/S1 TLIF with amna tritanium cages, autograft, ICBM aspirate 4. L4-S1 segmental posterolateral arthrodesis with amna xia3 pedicle screws/ rods, autograft, ICBM aspirate 5. Right posterior iliac crest bone marrow aspirate 6. O-arm navigation Watch for these problems: FEVER>101.3, INCREASED PAIN, REDNESS/SWELLING/DRAINAGE, DIZZINESS, SHORTNESS OF BREATH, CHEST PAIN Call Surgeon to remove: Maxi No bath, but you may shower: Yes Other wound care: SHOWER WITH OCCLUSIVE DRESSING Special Instructions: SEE PRE-PRINTED SHEET Diet Continue normal diet: Yes Recommended Diet: Regular Activity Full Activity/No Limits: No Activity Self Limited: Yes Pounds, do NOT lift more than: 10 Activity Limited to: Weight bear as tolerated Other activity limits: OUT OF BED WITH LUMBAR BRACE Acute Coronary Syndrome Inclusion Criteria At DC or during hospital stay patient has or had the following: ACS DIAGNOSIS No Discharge Core Measures Meds if any: Prescribed or Continued at Discharge Meds if any: NOT Prescribed or Continued at Discharge Congestive Heart Failure Inclusion Criteria At DC or during hospital stay patient has or had the following: CHF DIAGNOSIS No Discharge Core Measures Meds if any: Prescribed or Continued at Discharge Meds if any: NOT Prescribed or Continued at Discharge Cerebrovascular accident Inclusion Criteria At DC or during hospital stay patient has or had the following: CVA/TIA Diagnosis No Discharge Core Measures Meds if any: Prescribed or Continued at Discharge Meds if any: NOT Prescribed or Continued at Discharge Venous thromboembolism Inclusion Criteria VTE Diagnosis No VTE Type NONE VTE Confirmed by (Test) NONE Discharge Core Measures - Per Current guidelines, there needs to be overlap - treatment for the first 5 days of Warfarin therapy. - If discharged on Warfarin prior to 5 days of - overlap therapy, the patient will need to be - assessed for post discharge needs including - *Post discharge parental anticoagulation - *Warfarin and/or parental anticoagulation education - *Follow up date to check INR post discharge At least 5 days overlap therapy as Inpatient No Meds if any: Prescribed or Continued at Discharge Note: Overlap Therapy is Warfarin and Anticoagulant Meds if any: NOT Prescribed or Continued at Discharge
--- NOTE | 2016-10-01 08:11 | Surg Short-stay <48hrs Dis Sum ---
Visit Information Visit Dates Admission Date: 09/28/16 Discharge Date: 10/01/16 Surgical Short Stay DC Summary Admission Diagnosis: advanced L4/5, L5/S1 degenerative disc disease, stenosis, spondylolisthesis Final Diagnosis: SEE ABOVE, HYPERTENSION Procedure(s): Surgery Date: 09/28/16 Name of Procedure: 1. Bilat L4, L5 pars osteotomies 2. L4/5, L5/S1 far lateral discectomies 3. L4/5, L5/S1 TLIF with amna tritanium cages, autograft, ICBM aspirate 4. L4-S1 segmental posterolateral arthrodesis with amna xia3 pedicle screws/ rods, autograft, ICBM aspirate 5. Right posterior iliac crest bone marrow aspirate 6. O-arm navigation Summary/Significant Findings: Pt 56 yo male s/p work injury with intractable LBP and RLE pain and parasthesias with high grade foraminal stenosis at L4/5, L5/S1 secondary to advanced DDD, facet hypertrophy and uncovertebral spondylosis. In light of failure to respond to nonoperative treatment, he now presents for operative intervention. Patient underwent TLIF L4-L5, L5-S1 on 09/28/16 by , which went routinely. Post-op medical consult called for management of uncontrolled hypertension. Apparently the patient reported a history of this, and stopped taking medication several years ago. His blood pressure improved with norvasc. His drain was removed prior to discharge to home. He will be going home with a lumbar brace that was given to him on the day of surgery. He has specific discharge instructions that were provided at the time of his discharge. Condition at Discharge: stable Discharge Disposition: home or self care Discharge instructions provided to patient/family: Yes Post discharge follow-up plan: follow up with in 2 weeks see pre-printed sheets prescriptions provided, including dilaudid, valium, neurontin, and norvasc. he has been instructed to make an appointment with a PCP to follow up his hypertension.
[2016-10-01 08:40] VITALS: BP 148/80
== END 2016-10-01 09:12 | DRG 460 ==
LOC: ENRESERVDT → ENRESERVTM → DELPENDDIS → SDA 07:00 → 2NA 09-28 17:17 → ENPENDDIS 09-30 09:31 → 2NA 10-01 09:12
PROVIDERS: Physician Assistant; ADMIT Neurological Surgery
PROC: 4A1104G Monitoring of Peripheral Nervous Electrical Activity, Intraoperative, Open Approach (ICD-10-PCS; principal; 2016-09-28)
PROC: 0ST20ZZ Resection of Lumbar Vertebral Disc, Open Approach (ICD-10-PCS; principal; 2016-09-28)
PROC: 0SG00AJ Fusion of Lumbar Vertebral Joint with Interbody Fusion Device, Posterior Approach, Anterior Column, Open Approach (ICD-10-PCS; principal; 2016-09-28)
PROC: 0ST40ZZ Resection of Lumbosacral Disc, Open Approach (ICD-10-PCS; principal; 2016-09-28)
PROC: 0SG30AJ Fusion of Lumbosacral Joint with Interbody Fusion Device, Posterior Approach, Anterior Column, Open Approach (ICD-10-PCS; principal; 2016-09-28)
PROC: 07DR3ZZ Extraction of Iliac Bone Marrow, Percutaneous Approach (ICD-10-PCS; principal; 2016-09-28)
DX: M47.9 Spondylosis, unspecified (principal); I10 Essential (primary) hypertension; M48.06 Spinal stenosis, lumbar region; M48.07 Spinal stenosis, lumbosacral region; F17.200 Nicotine dependence, unspecified, uncomplicated
CPT/HCPCS: 2NAP; 72020; 72100; 80307; 82436; 87086; 88304; 93005; 93010; 97116-GO; 97161-GP; 97530-GO; C9290; J0131; J0690; J1100; J1170; J1644; J2405; J3250; J3370; J3490